=== PATIENT | male | born 1965 | race Caucasian/White ===

== ENCOUNTER 2025-10-23 23:57 | Emergency (ER) | payer SELFPAY ==
[~2025-10-23] VITALS: Ht 167.6 cm; Wt 82.0 kg
[2025-10-24 00:19] VITALS: O2SAT 99
[2025-10-24 02:49] VITALS: BP 140/90; PULSE 80; RESP 18; TEMP 36.6; O2SAT 99
== END 2025-10-24 02:57 | disposition home or self-care (01) ==
LOC: ER 23:57
DX: M25.561 Pain in right knee (principal); X58.XXXA Exposure to other specified factors, initial encounter; Y93.89 Activity, other specified; Y92.89 Other specified places as the place of occurrence of the external cause; Y99.8 Other external cause status
CPT/HCPCS: 29505; 73562; 99283